=== PATIENT | female | born 1985 | race Two or more races ===

== ENCOUNTER 2023-07-04 16:20 | Emergency (ER) | payer OTHER ==
[~2023-07-04] VITALS: Ht 170.2 cm; Wt 82.6 kg
[2023-07-04] MEDS ORDERED: KETOROLAC TROMETHAMINE 30 MG VIAL IM ONE (17:15)
[2023-07-04] MEDS ORDERED: KETOROLAC TROMETHAMINE 30 MG VIAL ONE ×2 (17:52→21:52)
[2023-07-04 18:17] LABS: HEMATOCRIT 37.5 % (36.0-45.00); HEMOGLOBIN 12.6 g/dL (12.0-15.00); MEAN CELL VOLUME 91.2 fL (80.00-100.00); MEAN CORPUSCULAR HEMOGLOBIN 30.7 pg (27.00-32.0); MEAN CORPUSCULAR HGB CONC 33.7 g/dl (32.0-36.0); PLATELET COUNT 249 K/uL (150-450); RED BLOOD COUNT 4.11 M/uL (4.00-6.00); RED CELL DISTRIBUTION WIDTH 13.6 % (11.5-14.5)
[2023-07-04 18:38] LABS: ALBUMIN 3.9 gm/dL (3.4-5.0); ALKALINE PHOSPHATASE 89 U/L (50-136); ALT/SGPT 13 U/L (12-78); ANION GAP 8 (10.0-20.0); AST/SGOT 14 U/L (15-37); BILIRUBIN TOTAL 2.02 mg/dL (0.3-1.2); BLOOD UREA NITROGEN 8 mg/dL (7-18); BUN CREA RATIO 10 (7.0-25.0); CALCIUM 9.5 mg/dL (8.5-10.1); CARBON DIOXIDE 27 mEq/L (21-32); CHLORIDE 109 mmol/L (98-107); CREATININE SERUM 0.83 mg/dL (0.55-1.02); GFR 77.78; GLOBULINA 3.9 G/DL (2.4-3.5); GLUCOSE FASTING 98 mg/dL (65-100); OSMOLALITY SERUM 278 MOSM/KG (275-295); POTASSIUM 3.66 mEq/L (3.5-5.1); SODIUM 140 mmol/L (136-145); TOTAL PROTEIN 7.8 gm/dL (6.4-8.2)
[2023-07-04 18:40] LABS: HCG QUANTITATIVE < 1 mUI/mL (1-3)
[2023-07-04 19:27] LABS: URINE APPEARANCE Clear; URINE BILIRRUBIN Negative (NEGATIVE); URINE BLOOD Trace; URINE COLOR Yellow; URINE GLUCOSE Negative (NEGATIVE); URINE KETONE Negative (NEGATIVE); URINE LEUKOCYTE Negative; URINE NITRATE Negative; URINE PROTEIN Negative (NEGATIVE)
[2023-07-04 19:31] LABS: URINE BACTERIA 632.4 uL (0.0-1933); URINE EPITHELIAL CELLS 15.7 uL (0.0-38.8)
[2023-07-04] MEDS ORDERED: KETOROLAC TROMETHAMINE 15 MG VIAL IV ONE (21:45)
[2023-07-04] MEDS ORDERED: MEPERIDINE HCL/PF 50 MG/ML VIAL IM ONE (23:45)
[2023-07-04] MEDS ORDERED: CEFAZOLIN SODIUM 1,000 MG VIAL IV ONE (23:45)
[2023-07-04] MEDS ORDERED: PROMETHAZINE HCL 25 MG/ML AMPUL IM ONE (23:45)
[2023-07-04] MEDS ORDERED: CEFAZOLIN SODIUM 1,000 MG VIAL ONE (23:49)
[2023-07-05] MEDS ORDERED: PROMETHAZINE HCL 25 MG/ML AMPUL ONE (00:13)
[2023-07-05] MEDS ORDERED: OxyCODONE HCL/APAP UD (PERCOCET) PO STA (04:53)
== END 2023-07-05 09:34 | disposition home or self-care (01) ==
LOC: ER 16:21
PROVIDERS: General Practice
DX: R10.2 Pelvic and perineal pain (principal); N83.201 Unspecified ovarian cyst, right side